=== PATIENT | female | born 1960 | race Hispanic/Latino ===

== ENCOUNTER 2020-03-21 22:04 | Inpatient (IN) | payer SELFPAY ==
[~2020-03-21] VITALS: Ht 149.9 cm; Wt 61.1 kg
[2020-03-21 22:43] LABS: BASOPHILS % (AUTO) 0.5 % (0.0-5.0); EOSINOPHILS % (AUTO) 0.2 % (0.0-8.0); HEMATOCRIT 43.7 % (36-48); LYMPHOCYTES % (AUTO) 7.5 % (21.0-51.0); MEAN CORPUSCULAR HEMOGLOBIN 27.7 pg (27.0-33.0); MEAN CORPUSCULAR HGB CONC 33.4 g/dL (32.0-36.0); MEAN CORPUSCULAR VOLUME 82.8 fL (79-99); MONOCYTES % (AUTO) 10.1 % (3.0-13.0); NEUTROPHILS % (AUTO) 80.4 % (40.0-77.0); PLATELET COUNT (AUTO) 404 K/uL (130-400); RED BLOOD CELL COUNT(AUTO) 5.28 MIL/uL (4.00-5.50); RED CELL DISTRIBUTION WIDTH 13.2 % (11.0-15.5); WHITE BLOOD COUNT (AUTO) 24.8 K/uL (4.8-10.8)
[2020-03-21 22:59] LABS: INR 1.16 (0.85-1.15); PROTHROMBIN TIME 12.2 SEC (9.6-11.6)
[2020-03-21 23:00] LABS: PARTIAL THROMBOPLASTIN TIME 22.5 SEC (26.3-35.5)
[2020-03-21 23:01] LABS: ALBUMIN 3.4 g/dL (3.5-5.0); BILIRUBIN,TOTAL 0.4 mg/dL (0.2-1.0); CREATININE 1.1 mg/dL (0.5-1.5); POTASSIUM 4.1 mmol/L (3.5-5.1); TOTAL PROTEIN, SERUM 7.2 g/dL (6.0-8.3)
[2020-03-21 23:16] LABS: BAND NEUTROPHILS % (MANUAL) 45 % (0-2); LYMPHOCYTES % (MANUAL) 11 % (22-44); MAN.DIFF COMMENT-IMPRESSION MANUAL DIFFERENTIAL; MONOCYTES % (MANUAL) 4 % (2-9); PLATELET MORPHOLOGY COMMENT ADEQUATE; SEGMENTED NEUTROPHILS % 40 % (40-70)
[2020-03-22] MEDS: 0.9%NACL 1000ML 1,000 ML IV SCH (00:15)
[2020-03-22] MEDS ORDERED: LIDOCAINE HCL 2% JELLY 5 ML ONE (01:39)
[2020-03-22 02:02] LABS: ABG BASE EXCESS -4.5 mmol/L (-2.0-3.0); ABG HCO3 18.5 mmol/L (21.0-28.0); ABG PCO2 29 mmHg (32-45)
[2020-03-22 02:10] LABS: APPEARANCE,URINE Clear (CLEAR); BILIRUBIN,URINE Negative (NEGATIVE); COLOR,URINE Yellow (YELLOW); GLUCOSE, URINE (UA) >=1000 mg/dL (NEGATIVE); KETONES,URINE 15 mg/dL (NEGATIVE); LEUKOCYTE ESTERASE ,URINE Negative (NEGATIVE); NITRATE,URINE Negative (NEGATIVE); OCCULT BLOOD,URINE Negative (NEGATIVE); PROTEIN,URINE Negative (NEGATIVE); UROBILINOGEN,URINE 0.2 mg/dL (0.2-1.0)
[2020-03-22] MEDS ORDERED: IOHEXOL 350 MG/ML 100ML INFUS..BTL IV ONE (02:20)
[2020-03-22] MEDS ORDERED: FLUCONAZOLE 100 MG TAB ONE (02:21)
[2020-03-22] MEDS ORDERED: CEFTRIAXONE 2GM VIAL ONE (02:21)
[2020-03-22] MEDS ORDERED: INSULIN HUMULIN R 100 UNIT/ML 3ML ONE (02:22)
[2020-03-22] MEDS ORDERED: METOCLOPRAMIDE 10 MG/2 ML VIAL ONE (02:34)
[2020-03-22] MEDS ORDERED: ONDANSETRON 4MG INJ ONE (02:34)
[2020-03-22] MEDS ORDERED: MORPHINE 4 MG SYG IV PRN (02:45)
[2020-03-22] MEDS ORDERED: ONDANSETRON 4MG INJ IV PRN (02:45)
[2020-03-22] MEDS: INSULIN GLARGINE 100 UNITS/ML 10 ML VIAL SQ SCH ×2 (02:45→21:00)
[2020-03-22] MEDS ORDERED: MORPHINE 2 MG SYG IV PRN (02:45)
[2020-03-22] MEDS ORDERED: ACETAMINOPHEN 325 MG TAB PO PRN ×2 (02:45)
[2020-03-22] MEDS ORDERED: LACTULOSE 20 GM/30 ML UDCUP PO PRN (02:45)
[2020-03-22] MEDS ORDERED: FLUCONAZOLE 400 MG/NS 200 ML 200 ML IV SCH (02:45)
[2020-03-22 02:47] LABS: BACTERIA,URINE None Seen /HPF (None Seen); RBC,URINE None Seen /HPF (0-1); SQUAMOUS EPITHELIAL CELL,UR Few /HPF (0-2); WBC,URINE None Seen /HPF (0-1)
[2020-03-22 04:02] LABS: HEMOGLOBIN A1C 12.7 % (4.0-6.0)
[2020-03-22] MEDS ORDERED: ZOSYN 3.375GM+NS 50ML 50 ML IV ONE ×3 (04:06→20:43)
[2020-03-22] MEDS ORDERED: 0.9%NACL 1000ML 1,000 ML IV SCH (06:30)
[2020-03-22] MEDS ORDERED: ENOXAPARIN SODIUM 40 MG/0.4 ML SYRINGE SQ ONE (08:28)
[2020-03-22] MEDS: CEFTRIAXONE 1G VIAL IV SCH (09:00)
[2020-03-22] MEDS: ENOXAPARIN SODIUM 40 MG/0.4 ML SYRINGE SQ SCH (09:00)
[2020-03-22] MEDS ORDERED: GLUCAGON 1MG KIT 1 MG ML IM PRN (09:45)
[2020-03-22] MEDS ORDERED: DEXTROSE 50%-WATER 50 ML DISP.SYRIN IV PRN (09:45)
[2020-03-22 10:16] LABS: HEMATOCRIT 35.5 % (36-48); MEAN CORPUSCULAR HEMOGLOBIN 28.4 pg (27.0-33.0); MEAN CORPUSCULAR HGB CONC 34.1 g/dL (32.0-36.0); MEAN CORPUSCULAR VOLUME 83.3 fL (79-99); PLATELET COUNT (AUTO) 298 K/uL (130-400); RED BLOOD CELL COUNT(AUTO) 4.26 MIL/uL (4.00-5.50); RED CELL DISTRIBUTION WIDTH 13.4 % (11.0-15.5); WHITE BLOOD COUNT (AUTO) 14.5 K/uL (4.8-10.8)
[2020-03-22 10:30] LABS: ALBUMIN 2.2 g/dL (3.5-5.0); BILIRUBIN,TOTAL 0.1 mg/dL (0.2-1.0); CREATININE 0.6 mg/dL (0.5-1.5); MAGNESIUM 2.3 mg/dL (1.80-2.40); TOTAL PROTEIN, SERUM 5.2 g/dL (6.0-8.3)
[2020-03-22 10:35] LABS: POTASSIUM 2.7 mmol/L (3.5-5.1)
[2020-03-22 10:47] LABS: BAND NEUTROPHILS % (MANUAL) 10 % (0-2); LYMPHOCYTES % (MANUAL) 13 % (22-44); MAN.DIFF COMMENT-IMPRESSION MANUAL DIFFERENTIAL; MONOCYTES % (MANUAL) 7 % (2-9); SEGMENTED NEUTROPHILS % 70 % (40-70)
[2020-03-22 10:48] LABS: PLATELET MORPHOLOGY COMMENT ADEQUATE
[2020-03-22] MEDS ORDERED: POTASSIUM CHLORIDE 20MEQ/100ML 100 ML IV PRN (11:00)
[2020-03-22] MEDS ORDERED: LIDOCAINE HCL-MPF 1% 2ML VIAL IJ PRN (11:00)
[2020-03-22] MEDS ORDERED: POTASSIUM CHLORIDE 10% ELIXIR 20 MEQ/15 ML UDCUP PO PRN (11:00)
[2020-03-22] MEDS: INSULIN HUMULIN R 100 UNIT/ML 3ML SQ SCH (11:30)
[2020-03-22] MEDS ORDERED: POTASSIUM CHLORIDE 20MEQ/100ML 100 ML IV ONE ×2 (11:40→15:50)
[2020-03-22] MEDS ORDERED: POTASSIUM CHLORIDE 10% ELIXIR 20 MEQ/15 ML UDCUP ONE ×4 (11:40→18:29)
[2020-03-22] MEDS ORDERED: INSULIN NPH 100 UNIT/ML 3ML SQ ONE (12:14)
[2020-03-22] MEDS ORDERED: 0.9%NACL 1000ML 1,000 ML IV ONE (12:19)
[2020-03-22 15:45] LABS: ABG OXYGEN SATURATION 85.8 % (95.0-99.0); BASE EXCESS,VENOUS BLOOD GAS -4.4 (-2.0-3.0); HCO3,VENOUS BLOOD GAS 19.4 (21.0-28.0); PCO2,VENOUS BLOOD GAS 32 (32-45); PH,VENOUS BLOOD GAS 7.394 (7.350-7.450)
[2020-03-22] MEDS: METRONIDAZOLE 500MG/100ML BAG 100 ML IVPB SCH (16:15)
[2020-03-22] MEDS ORDERED: CACL 1GM SYG IVP SCH (16:15)
[2020-03-22] MEDS ORDERED: METRONIDAZOLE 500MG/100ML BAG 100 ML ONE (17:42)
[2020-03-22] MEDS: ZOSYN 3.375GM+NS 50ML 50 ML IV SCH (20:00)
[2020-03-23] VITALS (7 sets, daily range): BP systolic 105–129; BP diastolic 61–80
[2020-03-23] MEDS ORDERED: FLUCONAZOLE 200 MG/NS 100 ML 100 ML IV SCH (03:00)
[2020-03-23] MEDS: ZOSYN 3.375GM+NS 50ML 50 ML IV SCH ×2 (04:00→04:55)
[2020-03-23 05:14] LABS: BASOPHILS % (AUTO) 0.7 % (0.0-5.0); EOSINOPHILS % (AUTO) 1.2 % (0.0-8.0); LYMPHOCYTES % (AUTO) 12.5 % (21.0-51.0); MEAN CORPUSCULAR HEMOGLOBIN 27.9 pg (27.0-33.0); MEAN CORPUSCULAR HGB CONC 32.8 g/dL (32.0-36.0); MEAN CORPUSCULAR VOLUME 85.1 fL (79-99); MONOCYTES % (AUTO) 8.7 % (3.0-13.0); NEUTROPHILS % (AUTO) 75.9 % (40.0-77.0); PLATELET COUNT (AUTO) 286 K/uL (130-400); RED BLOOD CELL COUNT(AUTO) 4.23 MIL/uL (4.00-5.50); RED CELL DISTRIBUTION WIDTH 13.8 % (11.0-15.5); WHITE BLOOD COUNT (AUTO) 12.5 K/uL (4.8-10.8)
[2020-03-23 05:21] LABS: CREATININE 0.5 mg/dL (0.5-1.5); POTASSIUM 3.5 mmol/L (3.5-5.1)
[2020-03-23 05:30] LABS: ALBUMIN 2.3 g/dL (3.5-5.0); BILIRUBIN,TOTAL 1.2 mg/dL (0.2-1.0); MAGNESIUM 2.4 mg/dL (1.80-2.40); TOTAL PROTEIN, SERUM 5.7 g/dL (6.0-8.3)
[2020-03-23] MEDS: INSULIN HUMULIN R 100 UNIT/ML 3ML SQ SCH ×4 (05:36→20:17)
[2020-03-23] MEDS: 0.9%NACL 1000ML 1,000 ML IV SCH ×5 (05:41→23:11)
[2020-03-23] MEDS: METRONIDAZOLE 500MG/100ML BAG 100 ML IVPB SCH ×2 (05:41→13:52)
[2020-03-23 05:44] LABS: CRP QUANTITATIVE 375.6 mg/L (0.00-9.0)
[2020-03-23] MEDS: INSULIN LISPRO 100 UNIT/ML 3ML SQ SCH ×4 (07:30→16:49)
[2020-03-23] MEDS: CEFTRIAXONE 1G VIAL IV SCH ×2 (09:00→09:56)
[2020-03-23] MEDS: ENOXAPARIN SODIUM 40 MG/0.4 ML SYRINGE SQ SCH (09:57)
[2020-03-23] MEDS ORDERED: METRONIDAZOLE 500 MG TABLET PO SCH ×2 (18:15→21:00)
[2020-03-23] MEDS: KCL 20 MEQ ERTAB PO PRN ×2 (19:20→20:38)
[2020-03-23] MEDS: INSULIN GLARGINE 100 UNITS/ML 10 ML VIAL SQ SCH (20:46)
[2020-03-23] MEDS ORDERED: MICONAZOLE NITRATE 45 GM CREAM.APPL VG SCH (21:00)
[2020-03-24 03:20] VITALS: BP 147/79
[2020-03-24] MEDS: INSULIN HUMULIN R 100 UNIT/ML 3ML SQ SCH (05:35)
[2020-03-24] MEDS: INSULIN LISPRO 100 UNIT/ML 3ML SQ SCH (06:08)
[2020-03-24] MEDS: 0.9%NACL 1000ML 1,000 ML IV SCH (06:19)
[2020-03-24 07:59] VITALS: BP 148/81
[2020-03-24] MEDS ORDERED: FLUCONAZOLE 100 MG TAB PO SCH (09:00)
[2020-03-24 09:33] LABS: BASOPHILS % (AUTO) 0.9 % (0.0-5.0); EOSINOPHILS % (AUTO) 3.2 % (0.0-8.0); HEMATOCRIT 35.2 % (36-48); LYMPHOCYTES % (AUTO) 15.6 % (21.0-51.0); MEAN CORPUSCULAR HEMOGLOBIN 27.9 pg (27.0-33.0); MEAN CORPUSCULAR HGB CONC 33.8 g/dL (32.0-36.0); MEAN CORPUSCULAR VOLUME 82.4 fL (79-99); MONOCYTES % (AUTO) 4.7 % (3.0-13.0); NEUTROPHILS % (AUTO) 74.4 % (40.0-77.0); PLATELET COUNT (AUTO) 347 K/uL (130-400); RED BLOOD CELL COUNT(AUTO) 4.27 MIL/uL (4.00-5.50); RED CELL DISTRIBUTION WIDTH 14.1 % (11.0-15.5); WHITE BLOOD COUNT (AUTO) 10.8 K/uL (4.8-10.8)
[2020-03-24 09:51] LABS: CREATININE 0.6 mg/dL (0.5-1.5); POTASSIUM 3.3 mmol/L (3.5-5.1)
[2020-03-24 12:00] VITALS: BP 138/83
[2020-03-24] MEDS ORDERED: KCL 20 MEQ ERTAB PO SCH (13:15)
[2020-03-24] MEDS ORDERED: CEFD300C3 PO (13:32)
[2020-03-28 16:10] LABS: CHLAMYDIA DNA N.A.AMPLIFY Negative (Negative)
== END 2020-03-24 13:10 | disposition home or self-care (01) | DRG 871 ==
LOC: EDH 22:04 → EDHIP 22:05 → 4DH 03-22 23:27
PROVIDERS: ADMIT Internal Medicine; ATTEND Internal Medicine
DX: A41.89 Other specified sepsis (principal); R65.21 Severe sepsis with septic shock; J18.9 Pneumonia, unspecified organism; N39.0 Urinary tract infection, site not specified; E87.1 Hypo-osmolality and hyponatremia; B37.3 Candidiasis of vulva and vagina; E11.65 Type 2 diabetes mellitus with hyperglycemia; E87.8 Other disorders of electrolyte and fluid balance, not elsewhere classified; I10 Essential (primary) hypertension; E78.5 Hyperlipidemia, unspecified; L29.9 Pruritus, unspecified; R19.7 Diarrhea, unspecified; B34.9 Viral infection, unspecified; Z20.822 Contact with and (suspected) exposure to COVID-19
CPT/HCPCS: 36415; 36600; 71045; 74177; 80048; 80053; 81001; 82010; 82330; 82803; 82948; 83036; 83605; 83630; 83690; 83735; 84145; 84484; 85025; 85378; 85610; 85651; 85730; 86140; 87040; 87046; 87088; 87324; 87426; 87486; 87797; 87804; 93005; G0378; J0696; J1450; J1650; J1815; J2405; J2543; J2765; J3480; J3490; J7030; Q9967; U0003